=== PATIENT | female | born 1980 | race African-American/Black ===

== ENCOUNTER 2017-08-17 07:19 | Emergency (ER) | payer SELFPAY ==
[~2017-08-17] VITALS: Ht 180.3 cm; Wt 104.3 kg
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
[2017-08-17] MEDS ORDERED: KETOROLAC 60 MG/2 ML VIAL IM ONE (08:45)
[2017-08-17 09:16] VITALS: BP 113/68
--- OUTSIDE RECORDS SUMMARY | 2017-08-18 10:00 | XMS REPORT | Continuity of Care Document ---
Author Author [facility] Address Unknown Phone Unavailable Allergies There is no data. Medications There is no data. Problems Date Dx Coded Attending Type Code Diagnosis Diagnosed By 03/02/2014 LEOBARDO ELI APRN 300.00 ANXIETY UNSPEC 03/02/2014 LEOBARDO ELI APRN 493.90 ASTHMA UNSPECIFIED Procedures There is no data. Results There is no data. Encounters ACCT No. Visit Date/Time Discharge Status Pt. Type Provider Facility Loc./Unit Complaint [id number] 03/02/2014 09:11:00 03/02/2014 23:59:59 CLS Outpatient LEOBARDO ELI APRN
== END 2017-08-17 09:16 | disposition home or self-care (01) ==
LOC: EDUNIT# 07:19 → ER 07:21
DX: T74.21XA Adult sexual abuse, confirmed, initial encounter (principal); S10.93XA Contusion of unspecified part of neck, initial encounter; M25.511 Pain in right shoulder; F17.210 Nicotine dependence, cigarettes, uncomplicated; Z98.51 Tubal ligation status; V48.6XXA Car passenger injured in noncollision transport accident in traffic accident, initial encounter
CPT/HCPCS: 73000; 73030; 99284

== ENCOUNTER → 2017-08-17 | Outpatient (CLI) | payer SELFPAY | LOC: FNS 06:18 | PROVIDERS: ATTEND Emergency Medicine | DX: Z02.89 Encounter for other administrative examinations (principal) ==